=== PATIENT | female | born 1970 | race Caucasian/White ===

== ENCOUNTER 2017-08-14 23:56 | Emergency (ER) | payer MEDICARE, MEDICAID ==
[~2017-08-14] VITALS: Ht 154.9 cm; Wt 54.2 kg
[~2017-08-14 23:56] MED LIST: ERYT1OIN6 LEFTEYE; NAPR-1154 PO; NITR100C6 PO; PANT20TA2 PO; PHEN-873 PO; PRED20TA PO
[2017-08-15 00:01] VITALS: BP 122/74
[2017-08-15] MEDS ORDERED: ACET-3068 PO (01:07)
[2017-08-15] MEDS ORDERED: PENI500T2 PO (01:07)
[2017-08-15] MEDS ORDERED: HYDROcodone/acetaminophen 5mg/325mg tablet PO ONE (01:10)
[2017-08-15] MEDS ORDERED: penicillin V potassium 500mg tablet PO ONE (01:10)
[2017-08-15] MEDS ORDERED: ibuprofen 200mg tablet PO ONE (01:10)
== END 2017-08-15 01:22 | disposition home or self-care (01) ==
LOC: ER 23:56
DX: K04.7 Periapical abscess without sinus (principal); F17.200 Nicotine dependence, unspecified, uncomplicated; Z90.710 Acquired absence of both cervix and uterus; Z98.890 Other specified postprocedural states; Z79.899 Other long term (current) drug therapy; Z56.0 Unemployment, unspecified
CPT/HCPCS: 99284

== ENCOUNTER 2018-04-25 23:21 | Emergency (ER) | payer MEDICARE, MEDICAID ==
[~2018-04-25] VITALS: Ht 154.9 cm; Wt 56.0 kg
[~2018-04-25 23:21] MED LIST changes: +PHEN-786 PO; -PHEN-873 PO
[2018-04-25 23:23] VITALS: BP 122/81
[2018-04-25] MEDS ORDERED: ibuprofen 200mg tablet PO ONE (23:50)
[2018-04-25] MEDS ORDERED: penicillin V potassium 500mg tablet PO ONE (23:50)
[2018-04-25] MEDS ORDERED: IBUP-1985 PO (23:50)
[2018-04-25] MEDS ORDERED: PENI500T2 PO (23:50)
[2018-04-25] MEDS ORDERED: HYDROcodone/acetaminophen 10/325mg tab PO ONE (23:50)
[2018-04-25] MEDS ORDERED: ibuprofen tablet 400 MG TABLET PO ONE (23:50)
[2018-04-25] MEDS ORDERED: HYDR-4353 PO (23:50)
== END 2018-04-26 00:07 | disposition home or self-care (01) ==
LOC: ER 23:22
DX: K08.89 Other specified disorders of teeth and supporting structures (principal); F17.200 Nicotine dependence, unspecified, uncomplicated; Z56.0 Unemployment, unspecified; Z87.11 Personal history of peptic ulcer disease; Z90.710 Acquired absence of both cervix and uterus; Z98.51 Tubal ligation status; Z98.890 Other specified postprocedural states; Z79.899 Other long term (current) drug therapy
CPT/HCPCS: 99284

== ENCOUNTER 2018-05-12 02:49 | Emergency (ER) | payer MEDICARE, MEDICAID ==
[~2018-05-12] VITALS: Ht 154.9 cm; Wt 57.0 kg
[~2018-05-12 02:49] MED LIST changes: +HYDR-4353 PO; +IBUP-1985 PO; +PENI500T2 PO
[2018-05-12 02:50] VITALS: BP 129/67
[2018-05-12] MEDS ORDERED: LIDOcaine 1% w/epiNEPHrine 1:200,000 30ml vial IM ONE (03:15)
[2018-05-12] MEDS ORDERED: sulfamethoxazole/trimethoprim DS (800/160mg) tablet PO ONE (03:40)
[2018-05-12] MEDS ORDERED: HYDROcodone/acetaminophen 10/325mg tab PO ONE (03:40)
[2018-05-12] MEDS ORDERED: HYDR-4353 PO (03:42)
[2018-05-12] MEDS ORDERED: SULF1TAB49 PO (03:42)
== END 2018-05-12 04:08 | disposition home or self-care (01) ==
LOC: ER 02:50
DX: N76.4 Abscess of vulva (principal); Z90.710 Acquired absence of both cervix and uterus; Z90.89 Acquired absence of other organs; Z98.890 Other specified postprocedural states; Z79.899 Other long term (current) drug therapy; Z56.0 Unemployment, unspecified
CPT/HCPCS: 56405; 99284; J3490

== ENCOUNTER 2018-06-17 03:20 | Emergency (ER) | payer MEDICARE, MEDICAID ==
[~2018-06-17] VITALS: Ht 154.9 cm; Wt 54.5 kg
[~2018-06-17 03:20] MED LIST changes: -HYDR-4353 PO; -PENI500T2 PO
[2018-06-17 03:26] VITALS: BP 116/70
[2018-06-17] MEDS ORDERED: CEPH500C5 PO (03:49)
[2018-06-17] MEDS ORDERED: SULF1TAB49 PO (03:49)
[2018-06-17] MEDS ORDERED: acetaminophen 325mg tablet PO ONE (03:50)
== END 2018-06-17 03:57 | disposition home or self-care (01) ==
LOC: ER 03:20
DX: L03.314 Cellulitis of groin (principal); Z87.11 Personal history of peptic ulcer disease; Z56.0 Unemployment, unspecified; Z90.710 Acquired absence of both cervix and uterus; Z98.51 Tubal ligation status; Z98.890 Other specified postprocedural states; Z79.899 Other long term (current) drug therapy
CPT/HCPCS: 99283

== ENCOUNTER 2019-03-10 10:38 | Emergency (ER) | payer MEDICARE, MEDICAID ==
[~2019-03-10] VITALS: Ht 154.9 cm; Wt 55.7 kg
[2019-03-10 10:42] VITALS: BP 100/60
[2019-03-10] MEDS ORDERED: PENI250T2 PO (10:52)
[2019-03-10] MEDS ORDERED: LORA-269 PO (10:52)
[2019-03-10] MEDS ORDERED: NICO-687 TOP (10:52)
== END 2019-03-10 11:18 | disposition home or self-care (01) ==
LOC: ER 10:39
DX: K08.89 Other specified disorders of teeth and supporting structures (principal); F15.10 Other stimulant abuse, uncomplicated; F17.200 Nicotine dependence, unspecified, uncomplicated; Z87.11 Personal history of peptic ulcer disease; Z56.0 Unemployment, unspecified; Z90.710 Acquired absence of both cervix and uterus; Z98.890 Other specified postprocedural states; Z98.51 Tubal ligation status; Z79.899 Other long term (current) drug therapy
CPT/HCPCS: 99283

== ENCOUNTER 2019-11-10 13:09 | Emergency (ER) | payer MEDICAID, MEDICARE, OTHER ==
[~2019-11-10] VITALS: Ht 154.9 cm; Wt 65.9 kg
[~2019-11-10 13:09] MED LIST changes: +LORA-269 PO
[2019-11-10 13:16] VITALS: BP 98/56
--- NOTE | 2019-11-10 14:24 | NUR ---
skilled labor at bedside
[2019-11-10 14:40] LABS: BASOPHILS % (AUTO) 0.5 % (0-1); EOSINOPHILS # (AUTO) 0.1 X10'3 (0-0.9); EOSINOPHILS % (AUTO) 1.1 % (0-6); HEMATOCRIT 39.9 % (35.0-45.0); HEMOGLOBIN 13.6 g/dl (12.0-16.0); LYMPHOCYTES # (AUTO) 2.1 X10'3 (1.1-4.8); LYMPHOCYTES % (AUTO) 35.5 % (21-51); MEAN CORPUSCULAR HEMOGLOBIN 29.3 PG (27.0-31.0); MEAN CORPUSCULAR VOLUME 86.3 FL (78-98); MONOCYTES # (AUTO) 0.6 X10'3 (0-0.9); MONOCYTES % (AUTO) 9.5 % (2-12); NEUTROPHILS # (AUTO) 3.1 X10'3 (1.8-7.7); NEUTROPHILS % (AUTO) 53.4 % (42-75); PLATELET COUNT 300 X10'3 (140-440); RED BLOOD COUNT 4.63 X10'6 (4.20-5.60); RED CELL DISTRIBUTION WIDTH 12.8 % (11.5-14.5); WHITE BLOOD COUNT 5.9 X10'3 (4.5-11.0)
[2019-11-10 14:48] LABS: CLARITY,URINE SLIGHTLY CLOUDY (Clear); COLOR,URINE STRAW (Yellow); GLUCOSE, URINE NEGATIVE (Neg); KETONES,URINE NEGATIVE (Neg); LEUKOCYTE ESTERASE ,URINE TRACE (Neg); NITRITES, URINE NEGATIVE (Neg); OCCULT BLOOD,URINE NEGATIVE (Neg); PH,URINE 6.5 (4.8-8.0); PROTEIN,URINE NEGATIVE (Neg); UROBILINOGEN,URINE 0.2 E.U/dL (0.2-1.0)
[2019-11-10 14:49] LABS: URINE HCG NEGATIVE (NEG)
[2019-11-10 14:50] LABS: UA COLLECTION TYPE CLN CATCH MIDSTREAM
[2019-11-10 14:55] LABS: SQUAMOUS EPITHELIAL CELL,UR MANY /LPF (FEW)
[2019-11-10 14:57] LABS: TRICHOMONAS,URINE FEW /HPF (NEGATIVE)
[2019-11-10 14:58] LABS: BACTERIA,URINE 2+ /HPF (Neg); RBC,URINE 0-2 /HPF (0-2)
[2019-11-10 15:00] LABS: ALANINE AMINOTRANSFERASE 18 U/L (12-78); ALBUMIN 3.7 G/DL (3.4-5.0); ALBUMIN/GLOBULIN RATIO 1.1 (1.1-1.5); ALKALINE PHOSPHATASE 69 IU/L (46-116); ANION GAP 5 (8-16); ASPARTATE AMINO TRANSFERASE 13 U/L (10-37); BILIRUBIN,TOTAL 0.2 MG/DL (0.1-1.0); BLOOD UREA NITROGEN 15 MG/DL (7-18); BUN/CREATININE RATIO 22.1 (6.6-38.0); CALCIUM 8.5 MG/DL (8.5-10.1); CHLORIDE 105 MMOL/L (99-107); CREATININE 0.68 MG/DL (0.40-0.90); GLUCOSE 85 MG/DL (70-104); LIPASE 138 U/L (73-393); POTASSIUM 4.1 MMOL/L (3.5-5.1); SODIUM 138 MMOL/L (135-145); TOTAL CARBON DIOXIDE 28.2 MMOL/L (24-32); eGFR > 90 ML/MIN
[2019-11-10] MEDS ORDERED: ondansetron 4mg rapidly disintigrating tab PO ONE (15:30)
[2019-11-10] MEDS ORDERED: ONDA8TAB6 PO (15:32)
== END 2019-11-10 16:00 | disposition home or self-care (01) ==
LOC: ER 13:10
DX: R11.2 Nausea with vomiting, unspecified (principal); R19.7 Diarrhea, unspecified; R10.30 Lower abdominal pain, unspecified; F15.90 Other stimulant use, unspecified, uncomplicated; Z90.710 Acquired absence of both cervix and uterus; Z98.51 Tubal ligation status; Z56.0 Unemployment, unspecified; Z98.890 Other specified postprocedural states; Z79.899 Other long term (current) drug therapy
CPT/HCPCS: 36415; 80053; 81001; 81025; 83690; 85025; 99283

== ENCOUNTER 2019-11-25 11:02 | Emergency (ER) | payer MEDICAID, MEDICARE ==
[~2019-11-25] VITALS: Ht 154.9 cm; Wt 80.0 kg
[~2019-11-25 11:02] MED LIST changes: +ONDA8TAB6 PO
[2019-11-25 11:13] VITALS: BP 121/50
[2019-11-25] MEDS ORDERED: PENI500T2 PO (11:48)
[2019-11-25] MEDS ORDERED: IBUP-1984 PO (11:48)
== END 2019-11-25 12:03 | disposition home or self-care (01) ==
LOC: ER 11:03
DX: K02.9 Dental caries, unspecified (principal); K08.89 Other specified disorders of teeth and supporting structures; F15.90 Other stimulant use, unspecified, uncomplicated; Z87.11 Personal history of peptic ulcer disease; Z90.710 Acquired absence of both cervix and uterus; Z90.89 Acquired absence of other organs; Z98.890 Other specified postprocedural states; Z56.0 Unemployment, unspecified; Z88.1 Allergy status to other antibiotic agents; Z79.899 Other long term (current) drug therapy
CPT/HCPCS: 99283

== ENCOUNTER 2019-12-07 10:51 | Emergency (ER) | payer MEDICARE ==
[~2019-12-07] VITALS: Ht 154.9 cm; Wt 66.3 kg
[2019-12-07 11:02] VITALS: BP 107/42
[2019-12-07] MEDS ORDERED: ibuprofen tablet 400 MG TABLET PO ONE (11:50)
--- NOTE | 2019-12-07 12:40 | NUR ---
Pt placed in isolation by provider, exam deferred to provider. See provider notes.
== END 2019-12-07 12:43 | disposition home or self-care (01) ==
LOC: ER 10:52
DX: B34.9 Viral infection, unspecified (principal); H92.03 Otalgia, bilateral; R11.2 Nausea with vomiting, unspecified; R05 Cough; Z90.710 Acquired absence of both cervix and uterus; Z98.51 Tubal ligation status; Z98.890 Other specified postprocedural states; Z56.0 Unemployment, unspecified; Z79.2 Long term (current) use of antibiotics; Z79.899 Other long term (current) drug therapy; Z20.828 Contact with and (suspected) exposure to other viral communicable diseases
CPT/HCPCS: 36415; 87635; 99283

== ENCOUNTER 2020-04-12 10:51 | Emergency (ER) | payer SELFPAY ==
[~2020-04-12] VITALS: Ht 154.9 cm; Wt 63.6 kg
[2020-04-12 11:21] VITALS: BP 121/67
[2020-04-12] MEDS ORDERED: PENI250T2 PO (12:10)
== END 2020-04-12 12:15 | disposition home or self-care (01) ==
LOC: ER 10:51
DX: K04.7 Periapical abscess without sinus (principal); F15.90 Other stimulant use, unspecified, uncomplicated; Z87.11 Personal history of peptic ulcer disease; Z90.710 Acquired absence of both cervix and uterus; Z98.51 Tubal ligation status; Z98.890 Other specified postprocedural states; Z56.0 Unemployment, unspecified; Z79.2 Long term (current) use of antibiotics; Z79.899 Other long term (current) drug therapy
CPT/HCPCS: 99283

== ENCOUNTER 2020-05-07 15:13 | Emergency (ER) | payer SELFPAY ==
[~2020-05-07] VITALS: Ht 154.9 cm; Wt 67.3 kg
[2020-05-07] MEDS ORDERED: CEFD300C3 PO (16:00)
[2020-05-07 16:19] VITALS: BP 105/63
== END 2020-05-07 16:20 | disposition home or self-care (01) ==
LOC: ER 15:14
DX: H66.91 Otitis media, unspecified, right ear (principal); H92.01 Otalgia, right ear; K08.89 Other specified disorders of teeth and supporting structures; F15.90 Other stimulant use, unspecified, uncomplicated; Z87.11 Personal history of peptic ulcer disease; Z90.710 Acquired absence of both cervix and uterus; Z98.51 Tubal ligation status; Z98.890 Other specified postprocedural states; Z56.0 Unemployment, unspecified; Z79.2 Long term (current) use of antibiotics; Z79.899 Other long term (current) drug therapy
CPT/HCPCS: 99283

== ENCOUNTER 2024-07-08 09:25 | Emergency (ER) | payer MEDICARE, MEDICAID ==
[~2024-07-08] VITALS: Ht 160 cm; Wt 68.3 kg
[~2024-07-08 09:25] MED LIST changes: +CEFD300C3 PO
--- NOTE | 2024-07-08 09:32 | Physician Documentation ---
History of Present Illness ~ Chief Complaint: Chest Pain Stated Complaint: SEE CHIEF COMPLAINT Time Seen by MD: 09:56 Primary Medical Doctor: NONE HPI 53-year-old female presents to the ED with a complaint of 11 days of chest pain which increases with inspiration. She states she was seen at [facility] had a full cardiac workup without any significant findings. Today she presents with similar complaints and shortness of breath. She states that she used to smoke cigarettes and now she only vapes nicotine. States that the pain feels like it is in between her ribs. Day of Onset: July 08, 2024 Tetanus within 5 Years?: Yes Allergies: Coded Allergies: No Known Allergies (Unverified , 07/08/24) Active Prescriptions See Medication Reconciliation Form. Medication Reconciliation Scheduled Cefdinir (Cefdinir), 300 MG PO BID Erythromycin Base Opth. Ointment* (Erythromycin Opth. Ointment*), 1 APPLIC LEFTEYE Q4HWA Ibuprofen (Ibuprofen), 1 TAB PO Q8H Lorazepam (Ativan), 1 TAB PO Q8H Naproxen (Naprosyn), 1 TAB PO Q12H Nitrofurantoin Monohyd/M-Cryst (Macrobid 100 mg Capsule), 1 CAP PO BID Ondansetron Hcl (Zofran), 1 TAB PO Q8H Pantoprazole Sodium (Protonix), 1 TAB PO DAILY Phenazopyridine Hcl (Pyridium tablet), 2 TAB PO TID Prednisone* (Prednisone*), 60 MG PO DAILY Past Medical History Past Medical History: Peptic Ulcer Disease Past Surgical History: hysterectomy, orthopedic surgeries, tubal ligation Alcohol Use: None Drug Use: methamphetamine Lives with: Family Lives In: Home Occupation: unemployed Past Social History: 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 Physical Exam Vital Signs: Temperature: 97.8, Source: Temporal, Heart Rate: 70, Respiratory Rate: 18, BP: 123/93, Pulse Oximetry: 98, Weight: 68.350 Physical Exam General: Alert, no apparent distress. Respiratory: Lungs clear, no respiratory distress. Chest: No accessory muscle use. Tender to lower intercostals palpation Cardiovascular: Regular rate and rhythm, no murmurs. Abdomen: soft, nontender, nondistended Neurologic: Oriented x4. Psychiatric: Normal mood and affect. Skin: Normal color, warm and dry. No edema, no ecchymosis. Progress Results/Orders Reviewed/noted all lab results: Yes Results/Orders Orders - JONH HEARN MD Ultrasound Of Abdomen (07/08/24 ) Cta Chest Pe (07/08/24 15:10) Completed Orders - JONH HEARN MD Cbc/Diff (07/08/24 10:02) CMP (07/08/24 10:02) Troponin (Single) (07/08/24 10:02) Electrocardiogram (07/08/24 10:02) Electrocardiogram (07/08/24 ) Ultrasound Of Abdomen (07/08/24 ) Acetaminophen 325mg Tablet (Tylenol Tabl (07/08/24 13:05) Cta Chest Pe (07/08/24 15:10) Iohexol 300mg/Ml 100ml Inj. (Omnipaque-3 (07/08/24 14:08) Medications Received in ER Medications (Trade) Dose Ordered Sig/Rahel Route PRN Reason Start Time Stop Time Status Last Admin Dose Admin (ipratrop/ albuterol 0.5-3(2.5) MG/3ml nebule) 3 ml Q4H ONCE NEB 07/08/24 12:00 07/08/24 12:01 DC 07/08/24 12:21 3 ML (Tylenol tablet) 650 mg ONCE ONCE PO 07/08/24 13:05 07/08/24 13:06 DC 07/08/24 13:08 650 MG Vital Signs 07/08/24 07/08/24 07/08/24 07/08/24 09:28 10:12 10:47 10:54 Temp 97.8 97.8 Pulse 70 57 58 65 78 Resp 18 26 22 B/P (MAP) 123/93 117/78 (91) 111/86 107/83 115/80 Pulse Ox 98 100 07/08/24 07/08/24 07/08/24 12:21 12:25 12:29 Temp 97.8 Pulse 61 59 57 Resp 21 16 16 B/P (MAP) 99/51 (67) Pulse Ox 98 96 O2 Delivery Room Air* Room Air* O2 Flow Rate 0 0 FiO2 21 Laboratory Tests Test 07/08/24 10:21 White Blood Count 5.5 Red Blood Count 4.69 Hemoglobin 13.1 Hematocrit 38.4 Mean Corpuscular Volume 81.9 Mean Corpuscular Hemoglobin 28.0 Mean Corpuscular Hemoglobin Concent 34.1 Red Cell Distribution Width 13.0 Platelet Count 309 Mean Platelet Volume 6.9 L Neutrophils (%) (Auto) 48.5 Lymphocytes (%) (Auto) 41.4 Monocytes (%) (Auto) 8.7 Eosinophils (%) (Auto) 0.9 Basophils (%) (Auto) 0.5 Neutrophils # (Auto) 2.7 Lymphocytes # (Auto) 2.3 Monocytes # (Auto) 0.5 Eosinophils # (Auto) 0.0 Basophils # (Auto) 0.0 CBC Comment Sodium Level 142 Potassium Level 3.8 Chloride Level 107 Carbon Dioxide Level 27.0 Anion Gap 8 Blood Urea Nitrogen 12 Creatinine 0.78 Estimated GFR/1.73 m2 78 BUN/Creatinine Ratio 15.4 Glucose Level 93 Calcium Level 8.9 Total Bilirubin 0.3 Aspartate Amino Transf (AST/SGOT) 14 Alanine Aminotransferase (ALT/SGPT) 26 Alkaline Phosphatase 114 Troponin I High Sensitivity 4 Total Protein 7.2 Albumin 3.8 Globulin 3.4 Albumin/Globulin Ratio 1.1 Chemistry Comments EKG/XRAY/CT/US/VASC/MRI EKG : Intepreting Monitor?: Yes Indication: chest pain EKG Rate: 53 EKG: sinus darlin Additional Comment my interpretation: sinus bradycardia, 53/minute, 1-box ST elevations in leads II, III, aVF, with no reciprocal changes. No STEMI criteria Chest X-Ray : Interpreted By: self Views: 1 VIEW Indication: shortness of breath Lungs: normal Mediastinum: normal Ribs/Bones: normal Abdomen: normal Impression: no acute disease Medical Decision Making Findings 53 year old female with symptoms as above, exam and VS nonspecific. Extensive workup did not reveal any specific etiology of her discomfort. Advised follow up with PCP, return precautions. Differential Dx:Considerations: Include: Flail chest, Myocardial contusion, Pneumothorax, Pulmonary contusion, Rib fracture Additional Comment Ddx includes OR/ACS, PE, gallbladder pathology Departure Disposition: HOME / SELF CARE / HOMELESS Impression: Primary Impression: Shortness of breath Condition: Stable Discharge Instructions: Nonspecific Chest Pain, Adult Referrals: NO PRIMARY CARE PROVIDER (PCP) Education Educated: Patient, Family Educated regarding: diagnosis, treatment, prognosis, need for follow up Signature Libby Signature: . Attestation: . RUBÉN URRUTIA NP July 08, 2024 09:32 JONH HEARN MD July 08, 2024 15:59
--- NOTE | 2024-07-08 10:20 | ELECTROCARDIOGRAPH REPORT ---
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
--- NOTE | 2024-07-08 10:23 | RADIOLOGY REPORT ---
EXAM: DI CHEST,SINGLE VIEW HISTORY: CP COMPARISON: None TECHNIQUE: PA upright view of the chest was performed. FINDINGS: No pneumothorax, consolidative infiltrates, or pulmonary edema. The heart is not enlarged. IMPRESSION: No acute intrathoracic process.
[2024-07-08 10:33] LABS: BASOPHILS % (AUTO) 0.5 % (0-1); EOSINOPHILS % (AUTO) 0.9 % (0-6); HEMATOCRIT 38.4 % (35.0-45.0); HEMOGLOBIN 13.1 g/dl (12.0-16.0); LYMPHOCYTES # (AUTO) 2.3 X10'3 (1.1-4.8); LYMPHOCYTES % (AUTO) 41.4 % (21-51); MEAN CORPUSCULAR HGB CONC 34.1 g/dL (33.0-36.5); MEAN CORPUSCULAR VOLUME 81.9 FL (78-98); MEAN PLATELET VOLUME 6.9 FL (7.4-10.4); MONOCYTES # (AUTO) 0.5 X10'3 (0-0.9); MONOCYTES % (AUTO) 8.7 % (2-12); NEUTROPHILS # (AUTO) 2.7 X10'3 (1.8-7.7); NEUTROPHILS % (AUTO) 48.5 % (42-75); PLATELET COUNT 309 X10'3 (140-440); RED BLOOD COUNT 4.69 X10'6 (4.20-5.60); WHITE BLOOD COUNT 5.5 X10'3 (4.5-11.0)
--- NOTE | 2024-07-08 10:49 | ELECTROCARDIOGRAPH REPORT ---
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
[2024-07-08 11:07] LABS: ALANINE AMINOTRANSFERASE 26 U/L (12-78)
[2024-07-08 11:13] LABS: ALBUMIN 3.8 G/DL (3.4-5.0); ALBUMIN/GLOBULIN RATIO 1.1 (1.1-1.5); ALKALINE PHOSPHATASE 114 IU/L (46-116); ANION GAP 8 (8-16); ASPARTATE AMINO TRANSFERASE 14 U/L (10-37); BILIRUBIN,TOTAL 0.3 MG/DL (0.1-1.0); BLOOD UREA NITROGEN 12 MG/DL (7-18); BUN/CREATININE RATIO 15.4 (10.0-20.0); CALCIUM 8.9 MG/DL (8.5-10.1); CHLORIDE 107 MMOL/L (99-107); CREATININE 0.78 MG/DL (0.40-0.90); GLUCOSE 93 MG/DL (70-104); POTASSIUM 3.8 MMOL/L (3.5-5.1); SODIUM 142 MMOL/L (135-145); TOTAL PROTEIN 7.2 G/DL (6.4-8.2); eCRCL 71 ML/MIN; eGFR 78 ML/MIN
[2024-07-08 12:21] VITALS: BP 99/51
[2024-07-08] MEDS: ipratropium/albuterol 3ml nebule NEB ONE (12:21)
[2024-07-08 12:25] VITALS: PULSE 59; RESP 16; O2SAT 96
[2024-07-08 12:29] VITALS: PULSE 57; RESP 16
[2024-07-08] MEDS: acetaminophen 325mg tablet PO ONE (13:08)
--- NOTE | 2024-07-08 13:52 | RADIOLOGY REPORT ---
INDICATION: epigastric discomfort TECHNIQUE: Multiple real-time sonographic images of the abdomen were obtained. COMPARISON: None FINDINGS: The liver is heterogeneous in echogenicity. The liver measures 14cm. No intrahepatic bilia ry ductal dilatation is noted. The gallbladder wall measures 0.2 cm and is unremarkable. No gallstones or sludge is seen. The commo n duct measures 0.3 cm and is unremarkable. No pericholecystic fluid is noted. The right kidney measures 11cm. No hydronephrosis. The pancreas is not well visualized due to obscuration from bowel gas. The visualized portions of the IVC and aorta are grossly unremarkable. IMPRESSION: Hepatic steatosis.
[2024-07-08] MEDS ORDERED: iohexol 300mg/ml 100ml inj. ONE (14:08)
--- NOTE | 2024-07-08 15:44 | RADIOLOGY REPORT ---
CT CTA CHEST PE W/ IV CONTRAST INDICATION: shortness of breath, epigastric pain EXAM DATE: 07/08/2024 03:08 PM COMPARISON: None RADIATION DOSE: CTDIvol: 15 mGy, DLP: 470 mGy*cm PROCEDURE: Helical CT angiographic images were obtained of the chest with intravenous contrast. Sagi ttal and coronal reconstructions as well as MIPS are provided. Maximum intensity projections performe d (MIPs) were performed for CTA. ADDITIONAL IMAGES / REFORMATS: None All CT scans at this medical facility are performed using dose modulation techniques as appropriate t o a performed exam including the following: Automated exposure control was utilized; adjustment of th e MA and/or KV according to patient size; and use of iterative reconstruction technique. FINDINGS: Bones: Normal. Visualized Abdomen: Normal. Chest Wall: Normal. Soft tissues: Normal. Mediastinum: Normal. Heart: Normal. Vessels: No filling defects in the visualized pulmonary arteries including the segmental and subsegme ntal pulmonary arteries. Lymph Nodes: Normal. Pleura: Normal. Airways: Normal. Lung: Normal. Other: None IMPRESSION: No pulmonary embolism in the visualized pulmonary arteries including the segmental and subsegmental p ulmonary arteries.
[2024-07-08] MEDS ORDERED: ALBU18HF2 INH (16:01)
[2024-07-08 16:04] VITALS: TEMP 97.8
== END 2024-07-08 16:07 | disposition home or self-care (01) ==
LOC: ER 09:25
DX: R06.02 Shortness of breath (principal); F15.90 Other stimulant use, unspecified, uncomplicated; Z87.891 Personal history of nicotine dependence; Z90.710 Acquired absence of both cervix and uterus
CPT/HCPCS: 36415; 71045; 71275; 76700; 80053; 84484; 85025; 93005; 94640; 99285; Q9967; 94760